=== PATIENT | female | born 1965 | race Caucasian/White ===

== ENCOUNTER 2017-12-20 19:58 | Emergency (ER) | payer BC ==
[2017-12-20 21:42] LABS: ABS Basophils 0 10^3/ul (0-0.2); ABS Eosinophils 0.1 10^3/ul (0-0.6); ABS Lymphocytes 1.7 10^3/ul (1.0-4.8); ABS Monocytes 0.8 10^3/ul (0-0.8); ABS Neutrophils 10.9 10^3/ul (1.5-7.7); ABS Nucleated RBC 0 10^3/ul; Eosinophil % 0.6 % (0-6); Hematocrit 39 % (35-47); Hemoglobin 13.3 g/dl (12.0-16.0); Lymphocyte % 12.3 % (25-47); Mean Corpuscular HGB Conc 35 g/dl (31-36); Mean Corpuscular Hemoglobin 32 pg (27-31); Mean Corpuscular Volume 92 fL (80-97); Mean Platelet Volume 7 um3 (7.4-10.4); Nucleated Red Blood Cells % 0.1; Platelet Count 253 10^3/ul (150-450); Red Blood Count 4.19 10^6/ul (4.0-5.4); Red Cell Distribution Width 13 % (10.5-15); White Blood Count 13.5 10^3/ul (3.5-10.8)
[2017-12-20 21:48] LABS: Urine Appearance Cloudy; Urine Blood 3+ (Negative); Urine Color Yellow; Urine Ketones Negative (Negative); Urine Protein Negative (Negative); Urine Specific Gravity 1.015 (1.010-1.030); Urine Urobilinogen Negative (Negative)
[2017-12-20 21:56] LABS: EGFR Non-African American 80.8 (>60)
--- NOTE | 2017-12-20 22:36 | ED ---
GI/ HPI - HPI Summary HPI Summary: 52 female presents to ED with complaints of right flank pain that began 2 hours ago and has since subsided just [employer]. Patient states currently pain has moved into her bladder and is described as "cranky and pressure". States she is also feeling like she is having decreased output. Did have pink tinged urine yesterday along with some pain. Denies any other notable blood since. Does admit to discomfort with urination. No genitalia or vaginal symptoms. Normal bowel movements, slightly constipated over past 2 days since patient has been traveling. Denies abdominal pain and pain did not radiate. Went from right flank to bladder. Patient states the pain was severe and caused her to feel flushed, sweaty and faint. Has since resolved. States when she got out of her vehicle to walk into ED she felt relief of pain from right flank. No other complaints. No PMHx. Did take 400mg ibuprofen prior to arrival. Pain was 10/10 however is now 4/10. - History of Current Complaint Chief Complaint: EDBackInjuryPain Stated Complaint: ABD PAIN Hx Obtained From: Patient Onset/Duration: Started Hours Ago, Resolved - mostly Severity: Severe Current Severity: Mild Pain Intensity: 4 Location of Pain: Suprapubic, Flank - R Pain Characteristics: Sharp, Dull - pressure and "cranky" bladder/suprapubic, Aching Associated Signs and Symptoms: Positive: Hematuria, Dysuria, Flank Pain, UTI Symptoms Aggravating Factor(s): Voiding, Urination Alleviating Factor(s): Spontaneous Resolution - Allergy/Home Medications Allergies/Adverse Reactions: Allergies Allergy/AdvReac Type Severity Reaction Status Date / Time Sulfa (Sulfonamide Allergy Eyes Verified 12/20/17 21:42 Antibiotics) Itchy/Swollen/Red/Watery PMH/Surg Hx/FS Hx/Imm Hx Endocrine/Hematology History: Denies: Hx Anticoagulant Therapy, Hx Diabetes Cardiovascular History: Denies: Hx Hypertension Respiratory History: Denies: Hx Asthma - Surgical History Surgery Procedure, Year, and Place: n/a - Immunization History Immunizations Up to Date: Yes Infectious Disease History: No Infectious Disease History: Denies: Traveled Outside the [place] in Last 30 Days - Family History Known Family History: Positive: None - Social History Alcohol Use: None Substance Use Type: Reports: None Smoking Status (MU): Never Smoked Tobacco Review of Systems Constitutional: Negative Cardiovascular: Negative Respiratory: Negative Positive: see HPI, dysuria, flank pain, hematuria, pain, urgency Musculoskeletal: Negative Neurological: Negative All Other Systems Reviewed And Are Negative: Yes Physical Exam Triage Information Reviewed: Yes Vital Signs On Initial Exam: Initial Vitals Temp Pulse Resp BP Pulse Ox 98.7 F 82 18 156/88 100 12/20/17 20:14 12/20/17 20:14 12/20/17 20:14 12/20/17 20:14 12/20/17 20:14 BP elevated due to pain, improved since Vital Signs Reviewed: Yes Appearance: Positive: Well-Appearing, No Pain Distress, Well-Nourished Skin: Positive: Warm, Skin Color Reflects Adequate Perfusion, Dry. Negative: Cold, Numb, Cyanosis @, Erythema @ Head/Face: Positive: Normal Head/Face Inspection Neck: Positive: Supple, Nontender Respiratory/Lung Sounds: Positive: Clear to Auscultation, Breath Sounds Present. Negative: Rales, Rhonchi, Wheezes Cardiovascular: Positive: Normal, RRR, Pulses are Symmetrical in both Upper and Lower Extremities. Negative: Murmur, Rub Abdomen Description: Positive: No Organomegaly, Soft, CVA Tenderness (R), Other : - suprapubic tenderness over bladder on palpation. Negative: CVA Tenderness ( L), Distended, Guarding, McBurney's Point Tenderness, Peritoneal Signs Bowel Sounds: Positive: Present Pelvic Exam: Positive: external exam normal - per patient, deferred exam Musculoskeletal: Positive: Normal, Strength/ROM Intact Neurological: Positive: Normal, Sensory/Motor Intact, Alert, Oriented to Person Place, Time Diagnostics - Vital Signs Vital Signs Temp Pulse Resp BP Pulse Ox 12/20/17 20:14 98.7 F 82 18 156/88 100 - Laboratory Lab Results: Lab Results 12/20/17 12/20/17 12/20/17 Range/Units 21:25 21:25 21:25 WBC 13.5 H (3.5-10.8) 10^3/ul RBC 4.19 (4.0-5.4) 10^6/ul Hgb 13.3 (12.0-16.0) g/dl Hct 39 (35-47) % MCV 92 (80-97) fL MCH 32 H (27-31) pg MCHC 35 (31-36) g/dl RDW 13 (10.5-15) % Plt Count 253 (150-450) 10^3/ul MPV 7 L (7.4-10.4) um3 Neut % (Auto) 81.0 (38-83) % Lymph % (Auto) 12.3 L (25-47) % [place] % (Auto) 5.8 (1-9) % Eos % (Auto) 0.6 (0-6) % Baso % (Auto) 0.3 (0-2) % Absolute Neuts (auto) 10.9 H (1.5-7.7) 10^3/ul Absolute Lymphs (auto) 1.7 (1.0-4.8) 10^3/ul Absolute Monos (auto) 0.8 (0-0.8) 10^3/ul Absolute Eos (auto) 0.1 (0-0.6) 10^3/ul Absolute Basos (auto) 0 (0-0.2) 10^3/ul Absolute Nucleated RBC 0 10^3/ul Nucleated RBC % 0.1 Sodium 135 (133-145) mmol/L Potassium 3.7 (3.5-5.0) mmol/L Chloride 102 (101-111) mmol/L Carbon Dioxide 26 (22-32) mmol/L Anion Gap 7 (2-11) mmol/L BUN 15 (6-24) mg/dL Creatinine 0.75 (0.51-0.95) mg/dL Est GFR ( Amer) 104.0 (>60) Est GFR (Non-Af Amer) 80.8 (>60) BUN/Creatinine Ratio 20.0 (8-20) Glucose 100 (70-100) mg/dL Lactic Acid 0.7 (0.5-2.0) mmol/L Calcium 9.8 (8.6-10.3) mg/dL Total Bilirubin 0.30 (0.2-1.0) mg/dL AST 24 (13-39) U/L ALT 17 (7-52) U/L Alkaline Phosphatase 53 (34-104) U/L C-Reactive Protein 5.35 H (< 5.00) mg/L Total Protein 7.4 (6.4-8.9) g/dL Albumin 4.4 (3.2-5.2) g/dL Globulin 3.0 (2-4) g/dL Albumin/Globulin Ratio 1.5 (1-3) Urine Color Urine Appearance Urine pH (5-9) Ur Specific [place] (1.010-1.030) Urine Protein (Negative) Urine Ketones (Negative) Urine Blood (Negative) Urine Nitrate (Negative) Urine Bilirubin (Negative) Urine Urobilinogen (Negative) Ur Leukocyte Esterase (Negative) Urine WBC (Auto) (Absent) Urine RBC (Auto) (Absent) Urine Bacteria (Absent) Urine Glucose (Negative) 12/20/17 Range/Units 21:25 WBC (3.5-10.8) 10^3/ul RBC (4.0-5.4) 10^6/ul Hgb (12.0-16.0) g/dl Hct (35-47) % MCV (80-97) fL MCH (27-31) pg MCHC (31-36) g/dl RDW (10.5-15) % Plt Count (150-450) 10^3/ul MPV (7.4-10.4) um3 Neut % (Auto) (38-83) % Lymph % (Auto) (25-47) % [place] % (Auto) (1-9) % Eos % (Auto) (0-6) % Baso % (Auto) (0-2) % Absolute Neuts (auto) (1.5-7.7) 10^3/ul Absolute Lymphs (auto) (1.0-4.8) 10^3/ul Absolute Monos (auto) (0-0.8) 10^3/ul Absolute Eos (auto) (0-0.6) 10^3/ul Absolute Basos (auto) (0-0.2) 10^3/ul Absolute Nucleated RBC 10^3/ul Nucleated RBC % Sodium (133-145) mmol/L Potassium (3.5-5.0) mmol/L Chloride (101-111) mmol/L Carbon Dioxide (22-32) mmol/L Anion Gap (2-11) mmol/L BUN (6-24) mg/dL Creatinine (0.51-0.95) mg/dL Est GFR ( Amer) (>60) Est GFR (Non-Af Amer) (>60) BUN/Creatinine Ratio (8-20) Glucose (70-100) mg/dL Lactic Acid (0.5-2.0) mmol/L Calcium (8.6-10.3) mg/dL Total Bilirubin (0.2-1.0) mg/dL AST (13-39) U/L ALT (7-52) U/L Alkaline Phosphatase (34-104) U/L C-Reactive Protein (< 5.00) mg/L Total Protein (6.4-8.9) g/dL Albumin (3.2-5.2) g/dL Globulin (2-4) g/dL Albumin/Globulin Ratio (1-3) Urine Color Yellow Urine Appearance Cloudy Urine pH 6.0 (5-9) Ur Specific [place] 1.015 (1.010-1.030) Urine Protein Negative (Negative) Urine Ketones Negative (Negative) Urine Blood 3+ H (Negative) Urine Nitrate Negative (Negative) Urine Bilirubin Negative (Negative) Urine Urobilinogen Negative (Negative) Ur Leukocyte Esterase Trace H (Negative) Urine WBC (Auto) 3+(>20/hpf) H (Absent) Urine RBC (Auto) 3+(>10/hpf) H (Absent) Urine Bacteria Absent (Absent) Urine Glucose Negative (Negative) Result Diagrams: 12/20/17 21:25 12/20/17 21:25 Lab Statement: Any lab studies that have been ordered have been reviewed, and results considered in the medical decision making process. - CT abd/pelvis CT Interpretation: Positive (See Comments) - 3mm calculus in urinary bladde, left side at margin of left ureteropelvic junction, no hydropnephrosis or hydroureter on either side, mdoerate constipation rest of exam unremarkable CT Interpretation Completed By: Radiologist Re-Evaluation - Re-Evaluation First Eval Re-Evaluation Time: 11:15 Change: Improved - still feeling ok, had some relief after urination. updated on labs and urinalysis, waiting for CT results. patietn still comfortable and does not want medication at this time Second Eval Re-Evaluation Time: 00:15 Change: Unchanged - still feeling fine, minimal pain. updated on CT results, plan and patient agrees understands. GIGU Course/Dx - Course Course Of Treatment: labs, urinalysis and Ct obtained. urinalysis showed significant blood, 3+ WBC. labs normal other than slightly elevated CRP. Ct showed 3mm urinary bladder stone. patient did not want pain management at this time as she was comfortable throughout stay as severe pain had subsided. Pain managemet along with ibuprofen at home. Aware of worsening signs and symptoms to watch out for. Educated on complications of bladder stone. Follow up closely with PCP to ensure passage. No other concerns at this time. increase fluid intake. - Diagnoses Differential Diagnoses - Female: Cystitis, Renal Calculi, Urinary Tract Infection, Ureteral Calculi Provider Diagnoses: Bladder calculi Discharge - Discharge Plan Condition: Stable Disposition: HOME Patient Education Materials: Bladder Stones (ED), Hydrocodone/Acetaminophen ( By mouth) Referrals: Non Staff,Doctor [Primary Care Provider] - Additional Instructions: Take prescribed medication as needed for pain. You may also take ibuprofen. Increase fluid intake. Please follow up with PCP to ensure passage of stone and there are no associated complications. Any new or worsening symptoms please seek medical attention promptly (fever, increased pain, trouble urinating, burning, bleeding etc) as discussed.
[2017-12-21] MEDS ORDERED: HYDROcodone/ACETAMIN 5-325 MG* 1 TAB PO ONE (00:19)
[2017-12-21 00:57] VITALS: BP 134/74
--- NOTE | 2017-12-21 07:28 | RAD ---
INDICATION: Right flank abdominal pain. COMPARISON: There are no prior studies available for comparison. TECHNIQUE: A CT scan of the abdomen and pelvis was performed without intravenous or oral contrast. Contiguous axial sections were obtained from the lung bases through the symphysis pubis. Images were reconstructed in the coronal and sagittal planes. FINDINGS: The lung bases are clear. No pleural effusion is present. The liver and spleen are within normal limits in size without significant focal abnormality on this noncontrast study. No calcified gallstones are seen. The pancreas appears to be within normal limits in size. The adrenal glands and kidneys are normal in size. No renal calculi or hydronephrosis is seen. There is a 2.5 mm calculus present within the urinary bladder on the left side. The aorta is normal in caliber without significant calcific plaque. No significant enlarged retroperitoneal lymph nodes are seen. The stomach, small and large bowel appear nondistended. The appendix is within normal limits. There is a large amount retained stool present throughout the colon. There is mild descending and sigmoid diverticulosis without evidence for diverticulitis. The uterus is normal in size and retroverted. No free intraperitoneal air or fluid is seen. No significant focal osseous abnormality is seen. IMPRESSION: 1. THERE IS A 2.5 MM CALCULUS WITHIN THE URINARY BLADDER CENTERED TOWARD THE LEFT SIDE. NO HYDRONEPHROSIS OR RENAL CALCULI ARE NOTED. 2. LARGE AMOUNT RETAINED STOOL.
== END 2017-12-21 00:57 | disposition home or self-care (01) ==
LOC: ED 19:58
DX: N21.0 Calculus in bladder (principal); K59.00 Constipation, unspecified; Z88.2 Allergy status to sulfonamides
CPT/HCPCS: 36415; 74176; 80053; 81003; 81015; 83605; 85025; 86140; 87086; 99284